=== PATIENT | female | born 1985 | race Caucasian/White ===

== ENCOUNTER → 2020-07-18 08:36 | Outpatient (CLI) | payer OTHER, SELFPAY ==
--- NOTE | 2020-07-18 | DI.MRI.S_ITS ---
PROCEDURE: MR ANKLE LT WO CON INDICATIONS: Posterior tibial tendinitis, left leg TECHNIQUE: Noncontrast sagittal T1 spin echo and T2 fast spin echo with fat saturation, axial proton density fast spin echo and T2 fast spin echo with fat saturation, coronal T1 spin echo and T2 fast spin echo with fat saturation through the ankle/hindfoot. COMPARISON: None. FINDINGS: Image quality: Excellent. Bones and joints: No bone marrow contusions or fractures. No hindfoot coalitions. No osteochondral injuries of the talar dome. Tibiotalar joint effusion Medial structures: Posterior tibialis intact. Flexor digitorum longus intact. There is flexor digitorum longus and posterior tibialis tenosynovitis. Flexor hallucis longus tendon intact. There is also possible distal flexor hallucis longus tenosynovitis at the level of the 1st metatarsal base although this is only partially visualized. The posterior tibial neurovascular bundle appears normal within the tarsal tunnel, without extrinsic mass effect. Deltoid ligament complex appears intact. The spring ligament appears intact. Lateral structures: Anterior talofibular ligament intact. Calcaneofibular ligament intact. Posterior talofibular ligament intact. Anterior and posterior tibiofibular ligaments appear intact, as is the intermalleolar ligament. Tibiofibular syndesmosis is normal in width at 2 mm or less. Peroneus longus and brevis tendons appear normal. Mild peroneus longus and brevis tenosynovitis. Bony peroneal tubercle and retrotrochlear prominence are normal in size. There is diffuse sinus tarsi T2 hyperintensity/edema and possible thickening of the lateral extensor retinaculum. There is loss of the normal fat signal intensity. Presumed degenerative intraosseous cystic changes at the subtalar joint. Subtalar joint degeneration. Anterior structures: Tibialis anterior intact. Extensor hallucis longus intact. There is mild extensor hallucis longus tenosynovitis. Extensor digitorum longus tendon intact. Dorsal talonavicular ligament appears intact. Posterior and plantar structures: Achilles tendon is intact. There is mild adjacent soft tissue edema raising the possibility of low-grade tendinopathy Mild medial band plantar fasciitis. No abductor digiti quinti muscle atrophy to suggest George neuropathy. IMPRESSION: Posterior tibialis and flexor digitorum longus tenosynovitis. 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 Mild medial band plantar fasciitis Mild distal Achilles tendinopathy Tibiotalar joint effusion Mild extensor hallucis longus tenosynovitis Mild peroneus longus and brevis tenosynovitis Dictated by: Francisco Glover M.D. on 07/18/2020 at 9:58 Approved by: Francisco Glover M.D. on 07/18/2020 at 10:14
== END ==
PROVIDERS: PCP Nurse Practitioner Family; Referring Provider Orthopaedic Surgery Foot and Ankle Surgery; Visit Provider Orthopaedic Surgery Foot and Ankle Surgery
DX: M76.822 Posterior tibial tendinitis, left leg (principal); M72.2 Plantar fascial fibromatosis; M65.872 Other synovitis and tenosynovitis, left ankle and foot
CPT/HCPCS: 73721

== ENCOUNTER → 2020-08-22 08:59 | Outpatient (CLI) | payer OTHER, SELFPAY ==
[2020-08-22 10:54] LABS: COVID19 -Nasal RAPID Negative (Negative)
== END ==
PROVIDERS: PCP Nurse Practitioner Family; Visit Provider Nurse Practitioner Family
DX: Z01.812 Encounter for preprocedural laboratory examination (principal); Z20.822 Contact with and (suspected) exposure to COVID-19
CPT/HCPCS: 87635

== ENCOUNTER 2020-08-24 06:10 | Day surgery (SDC) | payer OTHER, SELFPAY ==
[2020-08-24] VITALS (9 sets, daily range): BP systolic 130–149; BP diastolic 83–95; PULSE 75–88; RESP 8–16; TEMP 36.7–37.1; O2SAT 96–99; BMI 27.0
[2020-08-24] MEDS: LACTATED RINGERS 1,000 ML 42 ML IV ×2 (07:16→10:53)
--- NOTE | 2020-08-24 07:16 | PM.PREOP ---
Pre-operative Note COVID-19 COVID-19 status: Negative Result date/Date tested (Pos, Neg/Pending): 08/22/20 Interval Note History & Physical reviewed/Exam performed by Physician: Yes Changes to H&P: No
[2020-08-24] MEDS: SCOPOLAMINE 1 PATCH TOP (07:42)
[2020-08-24] MEDS: MIDAZOLAM 2 MG/2 ML VIAL IV (07:48)
--- NOTE | 2020-08-24 08:00 | DI.RAD.S_ITS ---
PROCEDURE: XR FOOT LT MIN 3V INDICATIONS: FOOT REPAIR TECHNIQUE: 10 views of the foot were acquired. COMPARISON: None. FINDINGS: Bones: Digital acquisition imaging shows a sequence of operative interventions at the left foot to include osteotomy fixation at the calcaneus, through posterior approach, and also fusion plate and screw fixation at the 1st tarsal-metatarsal joint and also osteotomy stable fixation at the proximal phalanx 1st digit. There does also appear to be a rectangular device superimposed on the distal calcaneus, possibly an osteotomy interspace device best seen on the lateral view.. Soft tissues: No tibiotalar joint effusion. Achilles tendon appears normal. IMPRESSION: Multiple osteotomy and fixation procedures have been performed through the series of images, establishing normal alignment. Dictated by: Wallace Rodrigues M.D. on 08/24/2020 at 13:40 Approved by: Wallace Rodrigues M.D. on 08/24/2020 at 14:00
[2020-08-24] MEDS: CEFAZOLIN 2 GM/100 ML FROZ.PIGGY IV ×2 (08:05→11:57)
--- NOTE | 2020-08-24 08:07 | SUR.PREOP ---
Block start time [0748] . Monitoring initiated and maintained throughout procedure. Oxygen and medications given per anesthesiologist instructions. Patient remained stable throughout procedure, no adverse reactions noted. Block end time [0758].
--- NOTE | 2020-08-24 08:45 | SUR.OPER ---
Supine on padded OR bed, head on pillow, arms secured on padded arm boards at <90 degrees abduction, bump under left hip, legs uncrossed, safety belt at pelvis, left leg under control of surgeon, tape over blanket over right lower leg.
[2020-08-24] MEDS: BUPIVACAINE 0.5% W/ EPI (PF) 30 ML VIAL INJ (09:08)
--- NOTE | 2020-08-24 09:45 | PM.PROC.1 ---
Procedures Date/Time Date of procedure: 08/24/20 Time of procedure: 08:00 Nerve Block Time out performed: Yes Local anesthetic used: other (5mL 2% Lidocaine, 15mL 0.5% Ropivacaine) Location of anesthetic used: lateral popliteal Amount of anesthesia used (mL): 20 Nerve blocks: other (sciatic nerve) Procedure successful: Yes Patient tolerated procedure: well Complications: none Additional comments: LEFT Ultrasound guided lateral popliteal sciatic nerve block for post operative pain management, as discussed with surgeon. Risks, benefits discussed with patient. Consent verified. Site marked by surgeon. Time out performed. Standard ASA monitors applied, NC O2, 2mg versed. Pt supine. Chloroprep. Sterile US sleeve and gel. Sciatic nerve identified proximal to popliteal fossa, at bifurcation. Lidocaine local skin wheal. 100mm x 21g Pajunk needle advanced with in-plane US guidance to nerve. Negative aspiration. 5mL 2% lidocaine and 15mL 0.5% ropivacaine injected with intermittent negative aspiration. Good LA spread noted on US. No pain, no paresthesias. VSS. Tolerated well.
--- NOTE | 2020-08-24 09:46 | P.PCN_ITS ---
Procedures Date/Time Date of procedure: 08/24/20 Time of procedure: 08:00 Nerve Block Time out performed: Yes Local anesthetic used: lidocaine 1% (5mL + 15mL 0.5ropivacaine) Location of anesthetic used: adductor canal Amount of anesthesia used (mL): 20 Nerve blocks: femoral (adductor canal) Procedure successful: Yes Patient tolerated procedure: well Complications: none Additional comments: Adductor canal block for post operative pain management. R/B discussed. Site marked. Consent verified/signed. Standard ASA monitors. NC O2. Chloroprep. Sterile technique. Femoral A/V/N identified medial mid thigh with US. Lidocaine skin wheal. 100mm x 21g Pajunk needle advanced with in-plane US guidance. Negative aspiration. LA injected medial and lateral to femoral artery. Negative aspiration throughout. No pain, no paresthesia with injection. VSS. Tolerated well. To OR.
[2020-08-24] MEDS: OXYCODONE IR 5 MG TABLET PO (12:40)
--- NOTE | 2020-08-24 16:18 | P.OP_ITS ---
Operative Date/Time/Diagnoses Date of procedure: 08/24/20 Time of procedure: 08:00 Pre-op diagnosis: Posterior tibialis tendinitis left leg, hallux valgus left foot, metatarsus primus varus, bunionette left foot, gastroc contracture Post-op diagnosis: same Procedure & Clinicians Procedure: 1. FDL transfer to the navicular, CPT code 88557, left 2. Osteotomy calcaneus left medial displacement calcaneus osteotomy CPT code 56132 3. Osteotomy calcaneus left lateral column lengthening CPT code 57266-48 separate osteotomy separate incision 4. Gastroc recession left CPT code 44341-88 5. Arthrodesis 1st tarsometatarsal joint, single CPT code 64552 6. Nigel osteotomy left great toe proximal phalanx CPT code 92747-61 7. Bunionette ostectomy, partial excision 5th metatarsal head, leftCPT code 70170-78 procedure was performed with a modifier 22 for severe flatfoot requiring multiple procedures in osteotomies and soft tissue work and deformity correction to achieve a plantigrade foot. This took knee nearly twice as long as a standard a flatfoot or bunion correction. Dr. Cielo Hong was 1st assist for this procedure and was integral in the positioning, exposure, manipulation and retraction. Same procedure as scheduled: Yes Indications: The patient is a 35-year-old female with of bilateral congenital pes planus a painful left Flat foot that have bothered her most of her life. She does have a diagnosis of rheumatoid arthritis and takes Xeljanz. She has been off of this a week before surgery and will be off 2 weeks afterwards. She also takes prednisone hydroxychloroquine. She has a painful bilateral flat feet left greater than right. She has a gastroc contracture severe pes planus painful hallux valgus and bunionette deformities. Her deformity is flexible. She has no significant joint destruction on MRI. She has been indicated for a joint sparing reconstruction. She does have a hypermobile 1st ray so would plan fusion of this joint. She has been indicated for a gastroc lengthening FDL transfer medial displacement calcaneal osteotomy likely lateral column lengthening. First TMT fusion likely Nigel osteotomy and bunionette exostectomy. The risks and benefits of the procedure have been discussed with the patient even opportunity to ask questions. The risks of surgery include but are not l imited to infection, malunion, nonunion, persistence of pain, damage to nerves and blood vessels, posttraumatic arthritis, DVT, PE, cardiopulmonary complications and . The patient expressed a thorough understanding of the risks and benefits of surgery and has elected to proceed. Consent was signed in the office. Surgeon: Christina Jones Sample Preparation Supervisor: Cielo Hong Anesthesia Type: General, Peripheral nerve block and Local Operative Notes Findings: Severe pes planus, hyper mobile 1st ray. Gastroc contracture. Spring ligament intact. Highly tendinotic and scarred posterior tibialis tendon. Closure Type: primary Specimen(s): none sent Prosthetic devices, grafts, tissues, transplants, or devices: Medial is placement calcaneal osteotomy was stabilized with 2 x 6.7 cannulated, short thread lag screws from the Arthrex set lateral column lengthening was fixed with a 8 mm bio sync wedge from the Arthrex set FDL transfer to navicular with the 4.75 bio tenodesis screw posterior tibialis tendon was debrided and tenodesed to the FDL with the FiberWire 1st TMT was fused using the plantar Lapidus plate. Nigel osteotomy with a 9 x 10 mm Arthrex staple Applied: implant(s) Estimated Blood Loss (mL): 50 Blood products transfused: none Tourniquet time (min): 130 Procedure in detail: Patient was seen in the preoperative area the site of surgery marked informed consent confirmed. The patient was brought back to the operating room by the anesthesia team positioned the supine position on the operative table. A preoperative nerve block was placed by the anesthesia team for postoperative pain control. All bony prominences well padded. A well-padded thigh tourniquet was placed. The contralateral extremity had an SCD on. Peroneal nerves were padded. The left lower extremities prepped and draped in standard sterile fashion. A formal time-out procedure was performed confirming the patient's side and site of surgery administration of appropriate preoperative antibiotics and presence of informed consent. Implants were in the room. All were in agreement. C-arm was brought in incisions were marked out on the foot under fluoroscopic guidance. At this point the Esmarch was used for exsanguination the tourniquet was raised on the thigh to 250 mm of mercury. This stayed up for 130 minutes. prior to tourniquet elevation examined under anesthesia demonstrated gastroc contracture with 20? dorsiflexion with the knee bent and less than 10? with the knee extended therefore decision was made for gastroc lengthening. Gastroc recession CPT code 02851: incision was made just medial to midline approximately 14 cm measured above the calcaneus along the calf this was taken down through the skin and subcutaneous tissues. fascia was opened. The gastroc and soleus fascia were isolated. These were then transected transfer versus Andria of from medial to lateral with the ankle in dorsiflexion providing a good stretch. release was completed approximately 2.5 cm of stretch was obtained he a demonstrating a 20? of dorsiflexion with the knee extended . The the wound was irrigated and closed in layers with 2-0 Vicryl 4-0 Monocryl and 3- 0 nylon suture. Medial displacement calcaneal osteotomy CPT code 30960: attention was then turned to completing the medial displacement calcaneal osteotomy. The Arthrex minimally invasive 3 mm bur set console was utilized. The trajectory for the osteotomy was marked out on the skin. The center area and the tuberosity was marked. A small skin incision was made down to bone. Elevator was used to clear a path for the bur. The bur was placed in and advanced across the tuberosity completely. This was then pulled back to approximately 50% and the osteotomy was completed in quadrants as the and near upper quadrant followed by the far superior quadrant the near inferior quadrant in the far superior quadrant. Osteotomy was confirmed on C-arm. And this was mobilized medially for added 8 cm and translation this was then pinned and checked on lateral and axial fluoroscopy for adequate axial alignment. This was fixed with a 26.7 cannulated short thread screws from the Arthrex set. lateral column lengthening CPT code 93966. Attention was turned to the anterior calcaneus to address the patient's significant talar uncoverage a lateral column lengthening was indicated. At the cc joint was isolated under fluoroscopy and marked. An area approximately 2 cm proximal to this was the planned osteotomy site. A separate incision was made to the cc joint and just inferior to the sinus tarsi. The peroneal tendons were retracted inferiorly the EDB and nerve were retracted superiorly. The cc joint was pinned. A wire was used as a guide for the osteotomy this was checked on fluoroscopy then the T PS saw was used to make the osteotomy just to the medial cortex but not through. The trials were then used and osteotomes to a wedge open the lengthening. A 6 trial and a trial were demonstrated. The a trial provided excellent fit and correction of the talar and coverage. Next the 8 mm bio sync wedge from Arthrex was positioned. Care was taken to make sure this was flushed with the lateral wall of the calcaneus and not proud. Next attention was turned to the medial side of the foot. Foot was externally rotated. A longitudinal incision from the medial malleolus and to the 1st TMT was made along the plantar medial border of the foot. Along the course of the posterior tibialis tendon and extending to the 1st metatarsal for the plantar Lapidus approach. FDL transfer CPT code 67926: the incision was taken down through the skin and subcutaneous tissues. The sheath for the posterior tibialis tendon was identified. This was extremely scarred in and took multiple blades to mobilize the posterior tibialis tendon. The sheath was opened. Tibialis tendon was extremely tendinotic at its insertion. The FDL tendon was located deep to this and followed to the knot of Massimo and released. This was then stitched with a FiberLoop and sized. It went through a 4.5 Sizer so a 4.75 bio tenodesis screw and a 5 mm hole were selected. Posterior tibialis tendon was debrided and a tenodesis to the to the FDL at the level of the malleolus At the end of the procedure. A guide pin for the bio tenodesis screw was placed under fluoroscopic guidance from the navicular tuberosity dorsal to plantar and medial to lateral. This was then overdrilled. The sutures were passed through and the tendon was advanced into the drill hole under tension. The bio tenodesis screw was then placed. It was noted on visualization the spring ligament was intact. Lapidus arthrodesis 1st tarsometatarsal joint CPT code 87603: Next attention was turned to the hyper mobile 1st ray. Extension of the incision distally to expose the 1st MTP joint. This was distracted and the joint prepped using the osteotomes, and power rasp and drill a. Good bleeding bone was obtained. 5 cc of demineralized cortical fibers were placed at the fusion site. This was pinned in place with care of correcting the biplanar deformity of the 1st ray. A large bone clamp was also used from the metatarsal head to the 2nd metatarsal and a pin from the base of the 1st metatarsal into the 2nd. The 1st TMT was cross pinned. Plantar Lapidus plate was fit to the plantar aspect of the joint. Small amount of the 1st right metatarsal insertion of the tibialis anterior was mobilized for this. The plate was fixed to bone with the BB tacks and then nonlocking and locking screws distally. The compression screw was then placed from distal to proximal followed by a locking screws proximally. This provided excellent fixation of the 1st tarsometatarsal joint and correction of the hallux valgus and hallux primus varus. Nigel osteotomy CPT code 94550: there was some residual hallux valgus through the deformity at the proximal phalanx of the 1st ray an Nigel osteotomy was performed for separate midline medial incision the bone was exposed. A TTS saw was used to take out and a 2 mm and medial based wedge. This was closed down. During closing down it did break through the lateral cortex. This was pinned in place and secured with a 9 x 10 mm Arthrex Nigel staple. Some of the leftover bone fibers were packed around the osteotomy site. Bunionette partial ostectomy CPT code 85855: attention was turned to the 5th toe the patient a painful bunionette. There was not really any deformity to the bone of there was a spur at the metatarsal head. Incision was made midline laterally at the level of the metatarsal head this was taken through the skin and subcutaneous tissues down to the level of the metatarsal head. There was a palpable spur in this area. The saw and rongeur were used to remove this and it was smoothed with a rasp. The wound was irrigated and closed in layers with 2-0 Vicryl, 4-0 Monocryl, 4-0 nylon. All wounds were irrigated thoroughly. The tourniquet was released prior to closure. Hemostasis was achieved. A deep layers were closed with 2 O Vicryl. Subcutaneous with 4-0 Monocryl and the skin with 3-0 and 4-0 nylon suture. A sterile dressing was placed with Xeroform gauze Webril a bulky Dowling cotton a posterior and U splint was placed. The patient was woken from anesthesia and taken to recovery room in good condition. There no immediate complications from this procedure. Complications: none Post-operative Condition: stable Disposition: PACU Plan for aftercare: nonweightbearing left lower extremity. Touchdown for balance okay. Elevate above the heart level level 2 weeks after surgery. Take medications as prescribed. Was provided Lovenox for DVT prophylaxis. Will follow up in 2 weeks for possible suture removal and cast placement. nonweightbearing 6 weeks.
== END 2020-08-24 13:25 | disposition home or self-care (01) ==
PROVIDERS: PCP Nurse Practitioner Family; Referring Provider Nurse Practitioner Family; Visit Provider Orthopaedic Surgery Foot and Ankle Surgery
PROC: (CPT 28735; principal; 2020-08-24 07:45)
PROC: (CPT 27685; 2020-08-24 07:45)
PROC: (CPT 28740; 2020-08-24 07:45)
DX: M76.822 Posterior tibial tendinitis, left leg (principal); M20.12 Hallux valgus (acquired), left foot; M21.622 Bunionette of left foot; M62.462 Contracture of muscle, left lower leg; M21.172 Varus deformity, not elsewhere classified, left ankle; M21.42 Flat foot [pes planus] (acquired), left foot; M06.9 Rheumatoid arthritis, unspecified; G43.909 Migraine, unspecified, not intractable, without status migrainosus
CPT/HCPCS: 28740; 27691; 27687; 28298; 28110; 28300 ×2; 64450; 73630; 76000; J0690; J1100; J1170; J2250; J2405; J2704; J3010

== ENCOUNTER → 2021-09-11 12:38 | Outpatient (CLI) | payer OTHER, SELFPAY ==
[2021-09-11 14:19] LABS: COVID19 -Nasal RAPID Negative (Negative)
== END ==
PROVIDERS: PCP Nurse Practitioner Family; Visit Provider Family Medicine Sleep Medicine
DX: Z20.822 Contact with and (suspected) exposure to COVID-19 (principal)
CPT/HCPCS: 87635; C9803

== ENCOUNTER 2021-09-13 10:25 | Day surgery (SDC) | payer OTHER, SELFPAY ==
[2021-09-11 12:43] VITALS: BMI 27.6
[2021-09-13] VITALS (8 sets, daily range): BP systolic 108–124; BP diastolic 59–82; PULSE 58–67; RESP 11–16; TEMP 36.4–36.8; O2SAT 97–100; BMI 27.6
--- NOTE | 2021-09-13 | DI.RAD.S_ITS ---
PROCEDURE: XR FOOT LT MIN 3V INDICATIONS: LT FOOT SURGERY TECHNIQUE: 6 fluoroscopic images of the left foot were acquired. COMPARISON: [facility], [facility], XR FOOT LT MIN 3V, 08/24/2020, 8:41. FINDINGS: Six fluoroscopic images of the left foot demonstrate fixation hardware within the midfoot, hindfoot, and forefoot. IMPRESSION: Postsurgical changes of the left foot. Dictated by: Lázaro Lazcano M.D. on 09/13/2021 at 17:20 Approved by: Lázaro Lazcano M.D. on 09/13/2021 at 17:22
[2021-09-13] MEDS: ACETAMINOPHEN 325 MG TABLET 975 MG PO (11:08)
[2021-09-13] MEDS: SCOPOLAMINE 1 PATCH TOP (11:08)
[2021-09-13] MEDS: LACTATED RINGERS 1,000 ML 42 ML IV ×2 (11:11→15:18)
--- NOTE | 2021-09-13 13:13 | PM.PREOP ---
Pre-operative Note COVID-19 COVID-19 status: Negative Interval Note History & Physical reviewed/Exam performed by Physician: Yes Changes to H&P: No
--- NOTE | 2021-09-13 13:16 | SUR.PREOP ---
Addendum entered by Kita Zuñiga R.N. 09/13/21 13:59: End time correction 1344 Original Note: Pre-Medicated at anesthesia. Time out at 1315. Block start time [1318] . Monitoring initiated and maintained throughout procedure. Oxygen at 2LNP given per anesthesiologist instructions. Patient remained stable throughout procedure, no adverse reactions noted. Block end time [1314].
[2021-09-13] MEDS: CEFAZOLIN 2 GM/20 ML SYRINGE IV (13:47)
--- NOTE | 2021-09-13 14:40 | SUR.OPER ---
Supine on padded OR bed, head on pillow, arms secured on padded arm boards at <90 degrees abduction, legs uncrossed, safety belt at waist , tape over blanket over lower right leg, gel bump under left hip, left leg draped free with tape over blankets under left calf.
[2021-09-13] MEDS: BUPIVACAINE 0.25% (PF) 30 ML, EPINEPHrine 0.15 MG INJ (14:53)
--- NOTE | 2021-09-13 16:37 | PM.OP.1 ---
Operative Date/Time/Diagnoses Date of procedure: 09/13/21 Time of procedure: 14:26 Pre-op diagnosis: Rheumatoid arthritis Arthritis left ankle and foot Deformity left foot Post-op diagnosis: same Procedure & Clinicians Procedure: 1. Fusion of the talonavicular and subtalar joints left CPT code 70579 2. Removal of deep implant left CPT code 28238 3. Bone graft minor small dowel left iliac crest dowel and aspirate CPT code 82412-60 Same procedure as scheduled: Yes Indications: Patient is a 36-year-old female with rheumatoid arthritis and severe painful flat feet. She had a left foot flatfoot reconstruction previously with joint sparing technique. 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 She has been indicated for hindfoot fusion including subtalar and talonavicular joint fusions. The risks benefits and alternatives to the procedure were discussed with the patient in detail. We talked about infection, nonunion malunion persistent pain, wound healing problems, amputation, DVT, pulmonary embolism, stroke, paralysis, , symmetric hardware. The patient elected to proceed with surgery. Consent was signed in the office. She has held her Xeljanz for 1 week prior and will hold it for 2 weeks after surgery. She has no personal or family history of blood clots her hypercoagulability. Will use aspirin for DVT prophylaxis postoperatively. Surgeon: Christina Jones Click Yes if Unassisted: Yes Anesthesia Type: General, Peripheral nerve block and Local Operative Notes Findings: Subtalar arthritis and pes planus with collapse through the subtalar and talonavicular joints. These were denuded of cartilage alignment was restored and transfixed with cannulated screws and a staple for the tn joint. The previous calcaneal osteotomy was healed. Closure Type: primary Specimen(s): none sent Prosthetic devices, grafts, tissues, transplants, or devices: Arthrex 6.7 cannulated screws short thread x2 70mm Arthrex 6.7 cannulated screw long thread x 1 x45mm Arthrex 18 x 18 staple Estimated Blood Loss (mL): 30 Blood products transfused: none Tourniquet time (min): 86 Procedure in detail: Patient was seen in the preoperative area the site of surgery marked informed consent confirmed. The patient was brought back to the operating room by the anesthesia team. Preoperative regional block was placed by the anesthesia team for postoperative pain control. Patient was positioned supine on operative table anesthetic was administered. Bony prominences well padded. An SCD was placed on contralateral lower extremity. Well-padded thigh tourniquet was placed on the operative extremity. Operative extremity was prepped and draped in the standard sterile fashion. The left foot was prepped and draped as well as the left iliac crest. Formal time-out procedure was performed confirming the patient's side and site of surgery administration of appropriate preoperative antibiotics and presence of informed consent. Implants were in the room and accounted for. All were in agreement An Esmarch was used for exsanguination the tourniquet raised on the thigh to 250 mmHg and stayed there for 86 minutes. Hardware removal: Attention was 1st turned to the back of the heel previous calcaneal osteotomy incision was reopened and a K-wire for for the 6.7 screws from the Arthrex set was used to place within the existing screws then the screwdriver was used to remove these. Once both screws were removed attention was turned to the hindfoot fusion. 2x6.7 Arthrex cannulated screws were removed. Iliac crest bone graft small: Attention was turned to the left iliac crest this was palpated. A small stab incision was made with a 15 blade. The gym she the 8 gauge trocar was advanced down to the bone and mallet it into the iliac crest. The central trocar was then removed and 10 cc of bone marrow aspirate was aspirated in small 2 cc aliquots with turning and redirection between aspirations. Once this was completed additional dowel cancellous bone graft was obtained from the same site by advancing the trocar sheath without the central portion. This was mixed together with 5 cc demineralized cortical fibers to create the bone graft for the fusion sites. Hindfoot fusion (subtalar talonavicular joint fusion) Incision was made from the tip of the calcaneus to the base of the 4th metatarsal. Dissection was taken down through the skin subcutaneous tissue. The extensor digitorum brevis was released proximally and suppressive dissection was then performed along the lateral border of the calcaneus and talus visualized in the posterior facet, sinus tarsi . Once the subperiosteal dissection was completed we removed all was left of the articular surface on the subchondral bone and posterior and anterior facets of the subtalar joint. The FHL was visualized indicating debridement all the way to the medial side posterior facet. The calcaneocuboid joint was maintained. Cartilage was removed from the lateral aspect of the talonavicular joint. Got down to good cancellous bone surfaces that were bleeding. These were then fish-scaled and drilled. All made an incision over the anterior medial aspect of the talonavicular joint. We took care not to injure the tibialis anterior tendon. Dissected through the subcutaneous tissue all the way down to the talonavicular joint. Then subperiosteal dissected the talonavicular joint. Osteophytes were removed. The talonavicular joint was then distracted. I removed what was left of the articular surface down to the subchondral bone. This maintained contour of the talonavicular joint we denuded down to cancellous bone bleeding on either side and drilled and fish-scaled these. Then bone graft was mixed with the iliac crest and I will and placed in the joint surfaces. We then reduced the subtalar joint anatomically and confirmed this both clinically and radiographically. This was provisionally fixed in place with pins and then we provisionally pinned in place the talonavicular joint. Once the joints were all reduced these were checked on radiographs and the foot was in a nice plantigrade position. We then placed 2 percutaneous screws from the posterior and inferior aspect of the calcaneus into the talus. These were 6.7 cannulated Arthrex screws. Each measured 70 mm these were short thread cannulated screws. And for fixation of the talonavicular joint we placed a long thread 45 mm 6.7 cannulated screw from the Arthrex set and a staple 18 x 18 This securely fixed the hindfoot joints restoring alignment. This was confirmed under AP lateral and oblique fluoroscopic imaging. Additional bone graft was packed into the sinus tarsi. The ankle joint was not violated. Once we were completely satisfied with the result the wound was irrigated and closed in layers with 2-0 Vicryl 4-0 Monocryl and 4-0 nylon. 15 cc additional 0.25% Marcaine with epinephrine was injected for local anesthetic. A Sterile bulky dressing and Dowling cotton was placed in a posterior splint was applied. The patient was then transported to the recovery room in good condition. There no immediate complications from this procedure. All counts were correct. Complications: none Post-operative Condition: stable Disposition: PACU Plan for aftercare: Nonweightbearing or touchdown for balance on the operative lower extremity. Elevate above the heart level to help with swelling. Keep dressings clean and dry. Follow up in clinic in 2 weeks. Will start taking aspirin for DVT prophylaxis on postoperative day 1. Has prescriptions for Zofran, gabapentin, Toradol, oxycodone, Colace and MiraLax. May also take Tylenol. Once the Toradol prescription is finished in 5 days may take ibuprofen.
--- NOTE | 2021-09-13 16:52 | SUR.PHASEI ---
Pt arrived with oral airway, placed on 10L via simple 02 mask. Oral airway out, 02 weaned off.
[2021-09-13] MEDS: ACETAMINOPHEN 325 MG TABLET PO (17:02)
== END 2021-09-13 18:00 | disposition home or self-care (01) ==
PROVIDERS: PCP Family Medicine; Referring Provider Orthopaedic Surgery Foot and Ankle Surgery; Visit Provider Orthopaedic Surgery Foot and Ankle Surgery
PROC: (CPT 27870; principal; 2021-09-13 12:15)
DX: M19.072 Primary osteoarthritis, left ankle and foot (principal); M06.9 Rheumatoid arthritis, unspecified; M62.89 Other specified disorders of muscle
CPT/HCPCS: 28715; 20900; 20680; 64450; 73620; 73630; 76000; J0171; J0690; J2250; J3010

== ENCOUNTER → 2022-05-21 16:04 | Outpatient (CLI) | payer OTHER, SELFPAY ==
[2022-05-21 16:54] LABS: COVID19 -Nasal RAPID Negative (Negative)
== END ==
PROVIDERS: PCP Family Medicine; Referring Provider Orthopaedic Surgery Foot and Ankle Surgery; Visit Provider Orthopaedic Surgery Foot and Ankle Surgery
DX: Z20.822 Contact with and (suspected) exposure to COVID-19 (principal)
CPT/HCPCS: 87635; C9803

== ENCOUNTER 2022-05-23 06:30 | Day surgery (SDC) | payer OTHER, SELFPAY ==
[2022-05-23] VITALS (7 sets, daily range): BP systolic 107–138; BP diastolic 62–93; PULSE 69–94; RESP 12–16; TEMP 36.2–36.8; O2SAT 95–99; BMI 29.7
[2022-05-23] MEDS: LACTATED RINGERS 1,000 ML 84 ML IV ×2 (07:09→09:57)
--- NOTE | 2022-05-23 07:11 | PM.PREOP ---
Pre-operative Note COVID-19 COVID-19 status: Negative Result date/Date tested (Pos, Neg/Pending): 05/21/22 Interval Note History & Physical reviewed/Exam performed by Physician: Yes Changes to H&P: No
[2022-05-23] MEDS: SCOPOLAMINE 1 PATCH TOP (07:34)
[2022-05-23] MEDS: CEFAZOLIN 2 GM/100 ML PREMIX 100 ML IV ×2 (08:20→12:15)
[2022-05-23] MEDS: BUPIVACAINE 0.25% (PF) 30 ML, EPINEPHrine 0.15 MG INJ (08:47)
--- NOTE | 2022-05-23 08:52 | SUR.OPER ---
Supine on padded OR bed, head on pillow, arms secured on padded arm boards at <90 degrees abduction, legs uncrossed, tape over blanket over lower legs. Gel pad under left heel. [place] bump under right hip placed by Surgeon. No Safety belt as 2 operative sites to foot and right iliac crest. Right leg in control of the Surgeon.
--- NOTE | 2022-05-23 13:06 | DI.RAD.S_ITS ---
PROCEDURE: XR FOOT RT MIN 3V INDICATIONS: FLAT FOOT REPAIR TECHNIQUE: 8 intraoperative fluoroscopic views of the foot were acquired. COMPARISON: [facility], CR, XR FOOT 3 VIEWS WEIGHT BEARING RIGHT, 04/30/2022, 9:38. [facility], CR, XR FOOT LT MIN 3V, 09/13/2021, 16:39. FINDINGS: Intraoperative fluoroscopic images of left foot shows subtalar fusion, fusion of 1st TMT joint and talonavicular joint with surgical hardware in place. IMPRESSION: Fluoro guidance was provided intraoperatively for right foot flat foot repair. Dictated by: Abelino Urbano M.D. on 05/23/2022 at 16:55 Approved by: Abelino Urbano M.D. on 05/23/2022 at 16:57
[2022-05-23] MEDS: ONDANSETRON 4 MG/2 ML INJ IV ×2 (14:06→14:52)
--- NOTE | 2022-05-23 14:23 | PM.OP.1 ---
Operative Date/Time/Diagnoses Date of procedure: 05/23/22 Time of procedure: 08:10 Pre-op diagnosis: Pes planovalgus right, hallux valgus right, tailor's bunion right, gastroc tightness, hypermobility 1st ray, metatarsus primus, rheumatoid arthritis Post-op diagnosis: same Procedure & Clinicians Procedure: Fusion of talonavicular and talocalcaneal joint CPT code 74821 Fusion tarsometatarsal joint, 1st, right CPT code 80999-90 Gastroc recession CPT code 75295-47 Nigel bunionectomy CPT code 75177 -59 Correction bunionette CPT code 75523-29 Bone graft minor or small dowel bone right iliac crest CP CPT 48749-09 The procedure was performed using the number 22 modifier due to severity of the deformity and difficulty with positioning a number of procedures exposure in complexity of the combination of the hindfoot and forefoot deformity procedures took approximately twice as long as a standard flat foot reconstruction. Same procedure as scheduled: Yes Indications: Patient is a 37-year-old female rheumatoid arthritis and severe pes [place] valgus deformity. She had a low left flat to foot reconstruction previously she did well from this and now would like the right side done. She has been indicated for hindfoot fusion including subtalar and talonavicular joint fusions to address her pes planovalgus as well as 1st TMT fusion to address her hypermobility, gastroc recession Nigel osteotomy for the hallux valgus interphalangeus and a bunionette correction. Risks benefits and alternatives of procedure were discussed in detail. We talked about infection, nonunion, malunion, persistent pain, wound healing problems, amputation, DVT, pulmonary embolism, stroke, paralysis, , symptomatic hardware. The patient elected to proceed with surgery. Consent was signed in the office. She has held her Xeljanz for 1 week prior and will hold 2 weeks after surgery. She has no personal or family history of blood clot or hypercoagulability. She will use aspirin postoperatively for DVT prophylaxis. During the operation, the services of a physician resident programs assistant were medically indicated and necessary to provide the exposure of the operative site for the surgical procedure and to maintain the limb in a proper position to carry out the operation safely and efficiently. Without a qualified dental assistant medical assistant being present this would extended the operative procedure and made the procedure technically more difficult to perform. Surgeon: Christina Jones Front Office Associate: Lluvia Harrison Anesthesia Type: General, Peripheral nerve block and Local Operative Notes Findings: Flexible pes planovalgus, hypermobility 1st ray, hallux valgus interphalangeus, positive exam indicating gastroc tightness, prominent bunionette deformity Closure Type: primary Specimen(s): none sent Prosthetic devices, grafts, tissues, transplants, or devices: Subtalar joint fusion: Arthrex cannulated screw, short thread 6.7 x 2 Talonavicular joint fusion: Arthrex cannulated screw long thread 6.7, Arthrex 20 x 20 staple First tarsometatarsal fusion: Arthrex plantar Lapidus plate right long, with locking screws and 4.0 lag screw Nigel osteotomy: Threaded 062 K-wire buried Estimated Blood Loss (mL): 100 Blood products transfused: none Tourniquet time (min): 120 Procedure in detail: Patient was seen in the preoperative area the site of surgery marked informed consent confirmed. The patient back to the operating room by the anesthesia team. A preoperative regional block was placed by the anesthesia team for postoperative pain control. Patient was then positioned supine on operative table general anesthetic was administered. Bony problems well padded and a well-padded thigh tourniquet was placed. An SCD was placed on the contralateral lower extremity. Operative extremities prepped and draped in the standard sterile fashion. The right foot was prepped and draped as well as the right iliac crest. Formal time-out procedure was performed confirming the patient signed site of surgery. Administration of appropriate preoperative antibiotics and presence of informed consent were count 4. Implants were in the room. All were in agreement. An Esmarch was used for exsanguination the tourniquet raised the thigh to 250 mm mercury this stayed there for 2 hours then was let down for greater than 30 minutes before was elevated again for another 90 minutes. Gastroc recession. Examination under anesthesia demonstrated gastroc contracture with 20? of dorsiflexion with the knee been less than 10? with the knee extended therefore decision was made for gastroc lengthening. Incision was made just medial to the midline approximately 14 cm measured above the calcaneus along the calf and was taken down through the skin subcutaneous tissue. We then transected the fascia was opened and then from medial to lateral with the ankle in dorsiflexion the gastroc was released allowing a 2.5 cm stretch and demonstrating 20? of dorsiflexion with the knee extended. Once this was completed the wound was irrigated and closed in layers with 2-0 Vicryl 4-0 Monocryl and 3-0 nylon suture. Iliac crest bone graft small. Attention was turned to the right iliac crest, this was palpated. Small stab incision was then made with a 15 blade. The jam she needle with the 8 gauge trocar was advanced down to the bone with a mallet into the iliac crest. The central trocar was removed and 10 cc of bone marrow aspirate was aspirated through small 2 cc aliquots with turning and redirection between aspirations. Once this was completed additional dowel cancellous bone graft was obtained from the same site by advancing the trocar sheath without the central portion. This was mixed together with a 15 cc cancellous chips to create bone graft for the fusion sites. Hindfoot fusion, subtalar and talonavicular joint fusion. Incision was made from the tip of the fibula to the base of the 4th metatarsal. Dissection was taken down through the skin and subcutaneous tissue. The extensor digitorum brevis was released proximally and reflected distally and tied with a stay stitch for retraction. Suppressive dissection was then performed along the lateral border of the calcaneus and talus visualizing the sinus tarsi and posterior is facet. Once subperiosteal dissection was completed we removed the remainder of the articular surface to prepare the subchondral bone of the posterior and middle facets of the subtalar joint. The FHL was visualized medially indicating appropriate debridement. Cartilage was then removed from the lateral aspect of the talonavicular joint. We got down to good cancellous bone surface that were bleeding. These were then fish-scaled and drilled. Separate incision was made over the anterior medial aspect of the talonavicular joint. We took care not to injure the tibialis anterior tendon. We dissected through the subcutaneous tissue all the way to the talonavicular joint. Then subperiosteal dissection was completed. Osteophytes were removed. The talonavicular joint was then distracted. I removed what was left of the articular surface and prepared the subchondral bone. This maintained the curvature of the talonavicular joint we denuded down to cancellous bleeding bone on both sides then drilled and fish-scaled these. Once the bone graft was mixed with the iliac crest that was placed on both of the prepped joint surfaces. We then reduced the subtalar joint anatomically and confirmed this both clinically and radiographically. This was provisionally fixed in place with pins and then we provisionally pinned the talonavicular joint. Once all the joints were reduced these were checked on radiographs of the foot noted and nice plantigrade position. We then placed 2 percutaneous screws from the posterior inferior aspect of the calcaneus into the talus. These were 6.7 cannulated screws from Arthrex. They were short thread cannulated screws. They were countersunk into the calcaneus to prevent prominence. And for fixation of the talonavicular joint we placed a long thread 6.7 cannulated screw from the Arthrex set and then a 20 x 20 staple. This securely fixed the hindfoot joints restoring alignment. This was confirmed under AP, mortise and axial imaging and lateral imaging. Additional bone graft was packed into the sinus tarsi. The ankle joint was not violated. Once we were completely satisfied with the results the wound was irrigated and closed with layers with 2-0 Vicryl, 4-0 Monocryl and 4-0 nylon. Lapidus arthrodesis 1st tarsometatarsal joint. Next attention was turned to the hyper mobile 1st ray. The medial incision was made plantarly along the 1st TMT joint to expose the 1st TMT. This was then distracted and the joint was prepped using osteotomes a power rasp and a drill. Good bleeding bone was obtained. Some of the mixture of autograft and allograft bone was placed at the fusion site. This was then pinned in place correcting the biplanar deformity of the 1st ray. A large bone clamp was used from the 1st to 2nd metatarsal and the TMT joint was cross pinned. The plantar Lapidus plate was then fit to the plantar aspect of the joint. This was a right long plate. This was carefully fit around the insertion of the tibialis anterior plate was fixed to the bone with BB tacks and then the nonlocking screw placed 1st and then a locking screw distally. The compression screw was then placed from distal to proximal followed by locking screws proximal. The 1st nonlocking screw distally was exchanged for a locking screw. This provided excellent fixation of the 1st tarsometatarsal joint and correction of the hallux valgus and hallux primus varus deformities. There was a small residual bump dorsal medially at the head of the 1st metatarsal this was incised over and TTS saw was used to plane this down followed by capsular closure. Nigel osteotomy. There was some residual hallux valgus interphalangeus through deformity at the proximal phalanx. Therefore the 1st ray an osteotomy was performed with a separate medial incision along the bone. The TTS saw was used to take out a 2 mm medial based wedge this was closed downed. And initially fixed in full place with a 9 x 10 mm Arthrex stable however this was found to break through the osteotomy site so was then removed and exchanged for 062 threaded K-wire that was buried. Bunionette partial osteotomy. Attention was then turned to the 5th toe where the patient had a painful bunionette. There is not really any deformity of the bone but there was a prominent spur at the metatarsal head. Incision was made along the midline laterally at the level of the metatarsal head and this was taken down through the skin and subcutaneous tissues to the level of metatarsal head. There is a palpable spur. A saw and rongeur were used to remove the stent was smoothed down with a rasp. The wound was then irrigated and closed in layers with 2-0 Vicryl 4-0 Monocryl and 4-0 nylon. Once this was completed tourniquet was released hemostasis was achieved. Wounds were irrigated and closed in layers with 2-0 Vicryl subcutaneous 4-0 Monocryl and 3-0 and 4-0 nylon in the skin. All counts were correct. Toes were pink and well perfused. Additional local anesthetic was administered. The patient was then placed into a sterile dressing with Xeroform, gauze, Webril, bunion strapping dressing and a bulky Dowling cotton splint with posterior and U flaps. Patient was woken from anesthesia and taken to recovery room in good condition. There no immediate complications from this procedure. Complications: none Post-operative Condition: stable Disposition: PACU Plan for aftercare: Nonweightbearing right lower extremity. Elevate above the heart level as much as possible for the 1st 2 weeks after surgery. Take medications as prescribed. Aspirin for DVT prophylaxis. Follow-up in clinic as scheduled.
--- NOTE | 2022-05-23 14:52 | SUR.PHASEII ---
Patient still c/o nausea and appears pale. VSS. Medicated with additional dose of zofran.
== END 2022-05-23 15:15 | disposition home or self-care (01) ==
PROVIDERS: PCP Family Medicine; Referring Provider Nurse Practitioner Family; Visit Provider Orthopaedic Surgery Foot and Ankle Surgery
PROC: (CPT 28715; principal; 2022-05-23 07:45)
PROC: (CPT 27685; 2022-05-23 07:45)
DX: M20.11 Hallux valgus (acquired), right foot (principal); M21.41 Flat foot [pes planus] (acquired), right foot; M21.621 Bunionette of right foot; M06.9 Rheumatoid arthritis, unspecified
CPT/HCPCS: 28715; 28740; 27687; 28298; 28110; 20900; 64450; 73630; 76000; C1713; J0171; J0690; J1100; J2405; J2704; J3010